=== PATIENT | female | born 1995 | race Caucasian/White ===

== ENCOUNTER 2020-02-23 12:38 | Emergency (ER) | payer MEDICAID, SELFPAY ==
[~2020-02-23] VITALS: Ht 149.9 cm; Wt 74.8 kg
[2020-02-23 12:41] VITALS: BP 141/99; Ht 149.9 cm; Wt 74.8 kg
== END 2020-02-23 16:14 | disposition home or self-care (01) ==
LOC: ED 12:38
DX: U07.1 COVID-19 (principal); J45.909 Unspecified asthma, uncomplicated; E66.9 Obesity, unspecified; Z68.33 Body mass index [BMI] 33.0-33.9, adult
CPT/HCPCS: U0003